=== PATIENT | male | born 1960 | race Caucasian/White ===

== ENCOUNTER 2019-04-26 10:55 | Inpatient (IN) | payer OTHER ==
[2019-04-26 11:38] VITALS: BMI 24.3
--- NOTE | 2019-04-26 12:30 | HP ---
COWS - Scale Resting Pulse: 1= [place] 81-100 Sweatin= Chills/Flushing Restless Observation: 1= Difficult to Sit Still Pupil Size: 0= Normal to Room Light Bone or Joint Aches: 1= Mild Discomfort Runny Nose/ Eye Tearin= None GI Upset > 30mins: 0= None Tremor Observation: 0= None Yawning Observation: 0= None Anxiety or Irritability: 0= None Goose Flesh Skin: 0=Smooth Skin COWS Score: 4 CIWA Score Nausea/Vomitin-No Nausea/No Vomiting Muscle Tremors: 1-None Visible, but [place] Anxiety: 0-No Anxiety, at Ease Agitation: 0-Normal Activity Paroxysmal Sweats: 1-Minimal Palms Moist Orientation: 0-Oriented Tacttile Disturbances: 0-None Auditory Disturbances: 0-None Visual Disturbances: 0-None Headache: 0-None Present CIWA-Ar Total Score: 2 - Admission Criteria OASAS Guidelines: Admission for Medically Managed Detox: Requires at least one of the followin. CIWA greater than 12 2. Seizures within the past 24 hours 3. Delirium tremens within the past 24 hours 4. Hallucinations within the past 24 hours 5. Acute intervention needed for co occurring medical disorder 6. Acute intervention needed for co occurring psychiatric disorder 7. Severe withdrawal that cannot be handled at a lower level of care (continued vomiting, continued diarrhea, abnormal vital signs) requiring intravenous medication and/or fluids 8. Admitting History and Physical - Admission Limitations to Obtaining History: No Limitations - Past Medical History Hepatobiliary: Yes: Hepatitis C (s/p treatment) Infectious Disease: Yes: HIV Musculoskeletal: Yes: Other (R sided 2x broken ribs) - Past Surgical History Past Surgical History: Yes: Cholecystectomy, Tonsillectomy - Smoking History Smoking history: Former smoker Have you smoked in the past 12 months: No - Alcohol/Substance Use Hx Alcohol Use: Yes Number of Drinks Daily: 12 History of Substance Use: reports: Cocaine, Heroin Date of Last Use: 04/26/19 - Social History Usual Living Arrangement: Yes: Alone Admission [facility] Allergies/Adverse Reactions: Allergies Allergy/AdvReac Type Severity Reaction Status Date / Time Unclassified Drug Allergy Unknown Verified 04/26/19 11:28 History of Present Illness: 59 y.o. M PM HIV (follows up at [facility], noncompliant with medications) , has 2 current broken ribs on R side (went to [facility] 2 days ago but left AMA) , Hep C (s/p treatment 1.5yrs ago). Has completed detox in the past. EtOH: 2- 6 packs daily. Last drink 3 beers this morning. Has never passed out from drinking. Never had a seizure d/t not drinking. Heroin: 2-3 bags daily along with methadone. Last used yesterday. Started heroin at age 16. Route: IV. Crack cocaine: Uses $30-$40/ day. Last used yesterday. Methadone: prescribed ([facility]) PSH: tonsilletomy, cholecystectomy Social hx: in [place] in an apartment. 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 I have strongly urged patient to follow up once rehab is completed with his HIV clinic to restart these medications as soon as possible. Patient is aware of risks of not taking HIV medications. Exam Limitations: No Limitations - Ebola screening Have you traveled outside of the country in the last 21 days: No Have you had contact with anyone from an Ebola affected area: No Do you have a fever: No - Review of Systems Constitutional: Diaphoresis EENT: reports: No Symptoms Reported Respiratory: reports: No Symptoms reported Cardiac: reports: No Symptoms Reported GI: reports: No Symptoms Reported : reports: No Symptoms Reported Musculoskeletal: reports: Other (R sided midaxillary pain T4-T7 d/t broken ribs) Integumentary: reports: No Symptoms Reported Neuro: reports: No Symptoms reported Endocrine: reports: No Symptoms Reported Hematology: reports: No Symptoms Reported Psychiatric: reports: No Sypmtoms Reported, Orientated x3 Patient History - Patient Medical History Hx Anemia: No Hx Asthma: No Hx Chronic Obstructive Pulmonary Disease (COPD): No Hx Cancer: No Hx Cardiac Disorders: No Hx Congestive Heart Failure: No Hx Hypertension: No Hx Hypercholesterolemia: No Hx Pacemaker: No HX Cerebrovascular Accident: No Hx Seizures: No Hx Dementia: No Hx Diabetes: No Hx Gastrointestinal Disorders: No Hx Liver Disease: No Hx Genitourinary Disorders: No Hx Sexually Transmitted Disorders: No Hx Renal Disease (ESRD): No Hx Thyroid Disease: No Hx Human Immunodeficiency Virus (HIV): Yes Hx Hepatitis C: Yes Hx Depression: No Hx Suicide Attempt: No Hx Schizophrenia: No - Patient Surgical History Past Surgical History: No Hx Cholecystectomy: Yes - Smoking Cessation Smoking history: Former smoker Have you smoked in the past 12 months: No Hx Chewing Tobacco Use: No Initiated information on smoking cessation: Yes 'Breaking Loose' booklet given: 04/26/19 - Substance & Tx. History Hx Alcohol Use: Yes Hx Substance Use: Yes Substance Use Type: Alcohol, Cocaine, Heroin, Prescribed (methadone) - Substances abused Alcohol Substance route: Oral Frequency: Daily Amount used: 12 beers Age of first use: 16 Date of last use: 04/26/19 Cocaine Substance route: Smoking Frequency: Daily Amount used: $50-70 Age of first use: 19 Date of last use: 04/25/19 Crack Substance route: Smoking Frequency: Daily Amount used: Varies Age of first use: 16 Date of last use: 04/26/19 Heroin Substance route: Injection Frequency: Daily Amount used: $20 Age of first use: 16 Date of last use: 04/25/19 Admission Physical Exam [facility] - Vital Signs Vital Signs: Vital Signs - 24 hr 04/26/19 11:27 Temperature 97.1 F L Pulse Rate 84 Respiratory 18 Rate Blood Pressure 116/61 - Physical General Appearance: Yes: Within Normal Limits HEENTM: Yes: Within Normal Limits, Hearing grossly Normal, Normocephalic Respiratory: Yes: Lungs Clear, Normal Breath Sounds Neck: Yes: Within Normal Limits Cardiology: Yes: Regular Rhythm, Regular Rate, S1, S2 Abdominal: Yes: Within Normal Limits, Non Tender, Soft Back: Yes: Within Normal Limits Musculoskeletal: Yes: Muscle Pain (R sided rib pain) Extremities: Yes: Normal Range of Motion 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, Fully Oriented, Alert Integumentary: Yes: Track Hernandez (RUE) Lymphatic: Yes: Within Normal Limits - Diagnostic (1) Heroin abuse Current Visit: Yes Status: Chronic (2) Alcohol abuse Current Visit: Yes Status: Chronic Cleared for Admission [facility] - Detox or Rehab [facility] Level of Care: Medically Supervised Breathalyzer - Breathalyzer Breathalyzer: 0.043 Urine Drug Screen - Test Device Lot number: [id number] Expiration date: 12/24/20 - Control Is test valid?: Yes - Results Drug screen NEGATIVE: No Urine drug screen results: COLEEN-Cocaine, MOP-Opiates, MTD-Methadone Inpatient Rehab Admission - Rehab Decision to Admit Inpatient rehab admission?: Yes - Initial Determination Are CD services needed?: Yes Free of communicable disease: Yes Not in need of hospitalization: Yes - Rehab Admission Criteria Previous failed treatment: No Poor recovery environment: No Comorbidities: No Lacks judgement: Yes Patient is meeting Inpatient Rehab admission criteria:: Yes
--- NOTE | 2019-04-26 12:49 | PN ---
Teaching Attending Note Name of Resident: Carolina Gonzalez ATTENDING PHYSICIAN STATEMENT I saw and evaluated the patient. I reviewed the resident's note and discussed the case with the resident. I agree with the resident's findings and plan as documented. SUBJECTIVE:pt reports etoh use 4 beers today , 1-2 x 6-pk/day , denies withdrawal symptoms, denies blackouts/ tremors , seizures . PMH HIV (follows up at [facility], noncompliant with medication> 3 mo reports diversion ) reports R rib frx (went to [facility] 2 days ago but left AMA), Hep C (s/p treatment 1.5yrs ago). Heroin: 2-3 bags dailyIV in UE , on MMTP Started heroin at age 16 Crack cocaine: Uses $30-$40/ day. Last used yesterday. PSH: tonsilletomy, cholecystectomy OBJECTIVE: wnwd IVDU track pizano R UE, Vital Signs - 24 hr 04/26/19 11:27 Temperature 97.1 F L Pulse Rate 84 Respiratory 18 Rate Blood Pressure 116/61 ASSESSMENT AND PLAN: Opioid dependence on agonist therapy Alcohol use disorder / Cocaine dependence - rehab
[2019-04-26] MEDS ORDERED: guaiFENesin 200 MG/10 ML 10 ML UNIT-DOSE CUPS PO PRN (13:17)
[2019-04-26] MEDS ORDERED: MAGNESIUM CITRATE 300 ML BOTTLE PO PRN (13:17)
[2019-04-26] MEDS ORDERED: ACETAMINOPHEN 325 MG TABLET (FP) PO PRN (13:17)
[2019-04-26] MEDS ORDERED: MAG HYDROX/AL HYDROX/SIMETH 30 ML UNIT-DOSE CUP PO PRN (13:17)
[2019-04-26] MEDS ORDERED: IBUPROFEN 400 MG TABLET (FP) PO PRN (13:17)
[2019-04-26] MEDS ORDERED: MENTHOL/PHENOL 1 EACH UD MM PRN (13:17)
[2019-04-26] MEDS ORDERED: P-EPHED 60MG/TRIPROLIDI 2.5MG TABLET PO PRN (13:17)
[2019-04-26] MEDS ORDERED: MAGNESIUM HYDROX 2400MG/30ML ORAL SUSPENSION 30 ML CUP PO PRN (13:17)
[2019-04-26] MEDS ORDERED: LOPERAMIDE HCL 2 MG CAPSULE PO PRN (13:17)
[2019-04-26] MEDS: MELATONIN 5 MG TABLETS PO PRN (21:32)
[2019-04-26] MEDS: THIAMINE HCL 100 MG TABLET (FP) PO SCH (21:32)
[2019-04-27] MEDS ORDERED: METHADONE HCL 10 MG TABLET ONE (05:04)
[2019-04-27] MEDS ORDERED: METHADONE HCL 40 MG DISPERSABLE TABLET ONE (05:04)
[2019-04-27] MEDS ORDERED: METHADONE HCL 10 MG TABLET PO SCH (06:00)
[2019-04-27] MEDS: METHADONE 80 MG, METHADONE 20 MG PO SCH (06:16)
[2019-04-27] MEDS: PRENATAL VITAMINS W/ FOLIC ACID TABLET (FP) PO SCH (10:03)
[2019-04-27] MEDS ORDERED: FLU VACCINE QUAD 60 MCG/0.5 ML (MDV 19-20) IM ONE (12:00)
[2019-04-27 12:30] LABS: HEMATOCRIT 42.5 % (35.4-49); MCH 27.9 pg (25.7-33.7); MEAN CELL VOLUME 84.5 fl (80-96); PLATELET COUNT 283 K/MM3 (134-434); RBC 5.03 M/mm3 (4.00-5.60); RDW 14.2 % (11.9-15.9); WHITE BLOOD COUNT 5.3 K/mm3 (4.0-10.0)
[2019-04-27 12:46] LABS: ALBUMIN 3.5 g/dl (3.4-5.0); BILIRUBIN,TOTAL 0.3 mg/dL (0.2-1); BLOOD UREA NITROGEN 5.6 mg/dL (7-18); CALCIUM 8.8 mg/dL (8.5-10.1); CREATININE 0.8 mg/dL (0.55-1.3); POTASSIUM 4.3 mmol/L (3.5-5.1); TOT PROT 7.4 g/dl (6.4-8.2)
[2019-04-27 14:28] LABS: PH,URINE 5.5 (5.0-8.0); URINE APPEARANCE Clear; URINE BILIRUBIN Negative (NEGATIVE); URINE COLOR Yellow; URINE GLUCOSE (UA) Negative (NEGATIVE); URINE KETONE Negative (NEGATIVE); URINE LEUK ESTERASE Negative (NEGATIVE); URINE NITRITE Negative (NEGATIVE); URINE PROTEIN Negative (NEGATIVE); URINE UROBILINOGEN 0.2 mg/dL (0.2-1.0)
[2019-04-27] MEDS: THIAMINE HCL 100 MG TABLET (FP) PO SCH (21:14)
[2019-04-27] MEDS: MELATONIN 5 MG TABLETS PO PRN (21:14)
[2019-04-28] MEDS ORDERED: METHADONE HCL 40 MG DISPERSABLE TABLET ONE (05:30)
[2019-04-28] MEDS ORDERED: METHADONE HCL 10 MG TABLET ONE (05:30)
[2019-04-28] MEDS: METHADONE 80 MG, METHADONE 20 MG PO SCH (07:20)
--- NOTE | 2019-04-28 10:11 | PN ---
[facility] Progress Note Note: Vital Signs Temperature 98.3 F 04/28/19 06:38 Pulse Rate 72 04/28/19 06:38 Respiratory Rate 16 04/28/19 06:38 Blood Pressure 123/72 04/28/19 06:38 O2 Sat by Pulse Oximetry (%) Laboratory Last Values WBC 5.3 K/mm3 (4.0-10.0) 04/27/19 08:25 RBC 5.03 M/mm3 (4.00-5.60) 04/27/19 08:25 Hgb 14.0 GM/dL (11.7-16.9) 04/27/19 08:25 Hct 42.5 % (35.4-49) 04/27/19 08:25 MCV 84.5 fl (80-96) 04/27/19 08:25 MCH 27.9 pg (25.7-33.7) 04/27/19 08:25 MCHC 33.0 g/dl (32.0-35.9) 04/27/19 08:25 RDW 14.2 % (11.9-15.9) D 04/27/19 08:25 Plt Count 283 K/MM3 (134-434) D 04/27/19 08:25 MPV 7.0 fl (7.5-11.1) L D 04/27/19 08:25 Sodium 139 mmol/L (136-145) 04/27/19 08:25 Potassium 4.3 mmol/L (3.5-5.1) 04/27/19 08:25 Chloride 103 mmol/L (98-107) 04/27/19 08:25 Carbon Dioxide 32 mmol/L (21-32) 04/27/19 08:25 Anion Gap 4 MMOL/L (8-16) L 04/27/19 08:25 BUN 5.6 mg/dL (7-18) L 04/27/19 08:25 Creatinine 0.8 mg/dL (0.55-1.3) 04/27/19 08:25 Est GFR (CKD-EPI)AfAm 112.53 04/27/19 08:25 Est GFR (CKD-EPI)NonAf 97.10 04/27/19 08:25 Random Glucose 92 mg/dL (74-106) 04/27/19 08:25 Calcium 8.8 mg/dL (8.5-10.1) 04/27/19 08:25 Total Bilirubin 0.3 mg/dL (0.2-1) 04/27/19 08:25 AST 16 U/L (15-37) 04/27/19 08:25 ALT 23 U/L (13-61) 04/27/19 08:25 Alkaline Phosphatase 104 U/L (45-117) 04/27/19 08:25 Total Protein 7.4 g/dl (6.4-8.2) 04/27/19 08:25 Albumin 3.5 g/dl (3.4-5.0) 04/27/19 08:25 Urine Color Yellow 04/27/19 08:50 Urine Appearance Clear 04/27/19 08:50 Urine pH 5.5 (5.0-8.0) 04/27/19 08:50 Ur Specific [place] 1.015 (1.010-1.035) 04/27/19 08:50 Urine Protein Negative (NEGATIVE) 04/27/19 08:50 Urine Glucose (UA) Negative (NEGATIVE) 04/27/19 08:50 Urine Ketones Negative (NEGATIVE) 04/27/19 08:50 Urine Blood Trace-intact (NEGATIVE) 04/27/19 08:50 Urine Nitrite Negative (NEGATIVE) 04/27/19 08:50 Urine Bilirubin Negative (NEGATIVE) 04/27/19 08:50 Urine Urobilinogen 0.2 mg/dL (0.2-1.0) 04/27/19 08:50 Ur Leukocyte Esterase Negative (NEGATIVE) 04/27/19 08:50 labs reviewed continue to monitor
[2019-04-28] MEDS: PRENATAL VITAMINS W/ FOLIC ACID TABLET (FP) PO SCH (10:28)
[2019-04-28] MEDS: MELATONIN 5 MG TABLETS PO PRN (21:24)
[2019-04-28] MEDS: THIAMINE HCL 100 MG TABLET (FP) PO SCH (21:24)
[2019-04-29] MEDS ORDERED: METHADONE HCL 10 MG TABLET ONE (05:57)
[2019-04-29] MEDS: METHADONE 80 MG, METHADONE 20 MG PO SCH (05:58)
[2019-04-29] MEDS ORDERED: METHADONE HCL 40 MG DISPERSABLE TABLET ONE (05:58)
[2019-04-29] MEDS: PRENATAL VITAMINS W/ FOLIC ACID TABLET (FP) PO SCH (09:29)
[2019-04-29] MEDS: THIAMINE HCL 100 MG TABLET (FP) PO SCH (21:25)
[2019-04-29] MEDS: MELATONIN 5 MG TABLETS PO PRN (21:25)
[2019-04-30] MEDS ORDERED: METHADONE HCL 40 MG DISPERSABLE TABLET ONE (05:32)
[2019-04-30] MEDS ORDERED: METHADONE HCL 10 MG TABLET ONE (05:32)
[2019-04-30] MEDS: METHADONE 80 MG, METHADONE 20 MG PO SCH (06:16)
[2019-04-30] MEDS: PRENATAL VITAMINS W/ FOLIC ACID TABLET (FP) PO SCH (12:27)
--- NOTE | 2019-04-30 14:17 | CONSULT ---
[facility] Psychiatric Consult - Data Date of interview: 04/30/19 Identifying data: Mr Rene is a 59 years old male, unemployed receving SSI, domiciled admitted self-referred on 04/26/19 for inpatient rehab admission for alcohol, opioid and cocaine Substance Abuse History: Reports history of alcohol, heroin and cocaine use. Refer to addiction counselor's summary for further information Medical History: Significant for HIV, history of treatment for hepatitis C, fracture right ribs and surgeries(cholecystectomy, tonsillectomy) Psychiatric History: Patient was approached in the small dining room. He told commercial lines underwriter:" you are not the one I want to speak to. I want to speak with the one with silver hair like me"
[2019-04-30] MEDS: THIAMINE HCL 100 MG TABLET (FP) PO SCH (22:11)
[2019-04-30] MEDS: SALICYLIC ACID 1 APPLIC BOTTLE TP SCH (22:11)
[2019-05-01] MEDS ORDERED: METHADONE HCL 10 MG TABLET ONE (05:06)
[2019-05-01] MEDS ORDERED: METHADONE HCL 40 MG DISPERSABLE TABLET ONE (05:07)
[2019-05-01] MEDS: METHADONE 80 MG, METHADONE 20 MG PO SCH (06:02)
[2019-05-01] MEDS: PRENATAL VITAMINS W/ FOLIC ACID TABLET (FP) PO SCH (10:05)
[2019-05-01] MEDS: SALICYLIC ACID 1 APPLIC BOTTLE TP SCH ×2 (10:05→21:13)
[2019-05-01] MEDS: MELATONIN 5 MG TABLETS PO PRN (21:13)
[2019-05-01] MEDS: THIAMINE HCL 100 MG TABLET (FP) PO SCH (21:13)
[2019-05-02] MEDS ORDERED: METHADONE HCL 10 MG TABLET ONE (05:13)
[2019-05-02] MEDS ORDERED: METHADONE HCL 40 MG DISPERSABLE TABLET ONE (05:13)
[2019-05-02] MEDS: METHADONE 80 MG, METHADONE 20 MG PO SCH (05:58)
[2019-05-02] MEDS ORDERED: PT OWN MED DRAWER 7, Y5N ONE ×2 (08:44→18:53)
[2019-05-02] MEDS: SALICYLIC ACID 1 APPLIC BOTTLE TP SCH ×2 (09:54→21:34)
[2019-05-02] MEDS: PRENATAL VITAMINS W/ FOLIC ACID TABLET (FP) PO SCH (09:54)
[2019-05-02] MEDS: THIAMINE HCL 100 MG TABLET (FP) PO SCH (21:35)
[2019-05-02] MEDS: MELATONIN 5 MG TABLETS PO PRN (21:35)
[2019-05-03] MEDS ORDERED: METHADONE HCL 10 MG TABLET PO SCH (06:00)
[2019-05-03] MEDS ORDERED: METHADONE HCL 10 MG TABLET ONE (06:01)
[2019-05-03] MEDS ORDERED: METHADONE HCL 40 MG DISPERSABLE TABLET ONE (06:01)
[2019-05-03] MEDS: METHADONE 80 MG, METHADONE 20 MG PO SCH (06:30)
[2019-05-03] MEDS: SALICYLIC ACID 1 APPLIC BOTTLE TP SCH ×2 (10:33→21:13)
[2019-05-03] MEDS: PRENATAL VITAMINS W/ FOLIC ACID TABLET (FP) PO SCH (10:33)
[2019-05-03] MEDS: THIAMINE HCL 100 MG TABLET (FP) PO SCH (21:13)
[2019-05-03] MEDS: MELATONIN 5 MG TABLETS PO PRN (21:13)
[2019-05-04] MEDS ORDERED: METHADONE HCL 10 MG TABLET ONE (06:00)
[2019-05-04] MEDS ORDERED: METHADONE HCL 40 MG DISPERSABLE TABLET ONE (06:00)
[2019-05-04] MEDS: METHADONE 80 MG, METHADONE 20 MG PO SCH (06:20)
[2019-05-04] MEDS: PRENATAL VITAMINS W/ FOLIC ACID TABLET (FP) PO SCH (09:37)
[2019-05-04] MEDS: SALICYLIC ACID 1 APPLIC BOTTLE TP SCH ×2 (09:37→21:41)
[2019-05-04] MEDS: THIAMINE HCL 100 MG TABLET (FP) PO SCH (21:38)
[2019-05-04] MEDS ORDERED: PT OWN MED DRAWER 7, Y5N ONE (21:40)
[2019-05-05] MEDS ORDERED: METHADONE HCL 40 MG DISPERSABLE TABLET ONE (05:24)
[2019-05-05] MEDS ORDERED: METHADONE HCL 10 MG TABLET ONE (05:24)
[2019-05-05] MEDS: METHADONE 80 MG, METHADONE 20 MG PO SCH (06:06)
[2019-05-05] MEDS: PRENATAL VITAMINS W/ FOLIC ACID TABLET (FP) PO SCH (10:59)
[2019-05-05] MEDS: SALICYLIC ACID 1 APPLIC BOTTLE TP SCH ×2 (10:59→22:31)
[2019-05-05] MEDS: THIAMINE HCL 100 MG TABLET (FP) PO SCH (22:32)
[2019-05-06] MEDS ORDERED: METHADONE HCL 40 MG DISPERSABLE TABLET ONE (05:01)
[2019-05-06] MEDS ORDERED: METHADONE HCL 10 MG TABLET ONE (05:01)
[2019-05-06] MEDS: METHADONE 80 MG, METHADONE 20 MG PO SCH (05:50)
[2019-05-06] MEDS: SALICYLIC ACID 1 APPLIC BOTTLE TP SCH ×2 (09:47→21:57)
[2019-05-06] MEDS: PRENATAL VITAMINS W/ FOLIC ACID TABLET (FP) PO SCH (09:47)
[2019-05-06] MEDS: THIAMINE HCL 100 MG TABLET (FP) PO SCH (21:58)
[2019-05-06] MEDS: MELATONIN 5 MG TABLETS PO PRN (21:58)
[2019-05-07] MEDS ORDERED: METHADONE HCL 40 MG DISPERSABLE TABLET ONE (06:27)
[2019-05-07] MEDS ORDERED: METHADONE HCL 10 MG TABLET ONE (06:27)
[2019-05-07] MEDS: METHADONE 80 MG, METHADONE 20 MG PO SCH (06:30)
[2019-05-07] MEDS ORDERED: PT OWN MED DRAWER 7, Y5N ONE (08:40)
[2019-05-07] MEDS: PRENATAL VITAMINS W/ FOLIC ACID TABLET (FP) PO SCH (10:39)
[2019-05-07] MEDS: SALICYLIC ACID 1 APPLIC BOTTLE TP SCH ×2 (10:39→21:08)
[2019-05-07] MEDS: THIAMINE HCL 100 MG TABLET (FP) PO SCH (21:08)
[2019-05-07] MEDS: MELATONIN 5 MG TABLETS PO PRN (21:08)
[2019-05-08] MEDS ORDERED: METHADONE HCL 40 MG DISPERSABLE TABLET ONE (06:04)
[2019-05-08] MEDS ORDERED: METHADONE HCL 10 MG TABLET ONE (06:04)
[2019-05-08] MEDS: METHADONE 80 MG, METHADONE 20 MG PO SCH (06:05)
[2019-05-08] MEDS: PRENATAL VITAMINS W/ FOLIC ACID TABLET (FP) PO SCH (10:16)
[2019-05-08] MEDS: SALICYLIC ACID 1 APPLIC BOTTLE TP SCH ×2 (10:17→21:44)
[2019-05-08] MEDS: THIAMINE HCL 100 MG TABLET (FP) PO SCH (21:44)
[2019-05-08] MEDS: MELATONIN 5 MG TABLETS PO PRN (21:44)
[2019-05-09] MEDS ORDERED: METHADONE HCL 10 MG TABLET ONE (05:05)
[2019-05-09] MEDS ORDERED: METHADONE HCL 40 MG DISPERSABLE TABLET ONE (05:05)
[2019-05-09] MEDS: METHADONE 80 MG, METHADONE 20 MG PO SCH (05:50)
[2019-05-09] MEDS: PRENATAL VITAMINS W/ FOLIC ACID TABLET (FP) PO SCH (09:56)
[2019-05-09] MEDS: SALICYLIC ACID 1 APPLIC BOTTLE TP SCH ×2 (09:57→21:52)
--- NOTE | 2019-05-09 14:01 | PN ---
S Progress Note Note: Requesting to start his HIV medications. Patient has not been on medications for > 3 months. States that he has had several periods without taking his medication and re-starting the regimen again. Explained to patient that we cannot do a resistance test to determine the correct regimen because he has been on and off his HIV medications several times and may have developed resistance. Advised patient to return to his HIV specialist upon discharge to re -start medications.
[2019-05-09] MEDS: THIAMINE HCL 100 MG TABLET (FP) PO SCH (21:52)
[2019-05-10] MEDS ORDERED: METHADONE HCL 40 MG DISPERSABLE TABLET ONE (05:15)
[2019-05-10] MEDS ORDERED: METHADONE HCL 10 MG TABLET ONE (05:15)
[2019-05-10] MEDS: METHADONE 80 MG, METHADONE 20 MG PO SCH (05:56)
[2019-05-10] MEDS ORDERED: PT OWN MED DRAWER 7, Y5N ONE (08:28)
[2019-05-10] MEDS: SALICYLIC ACID 1 APPLIC BOTTLE TP SCH ×2 (10:10→21:59)
[2019-05-10] MEDS: PRENATAL VITAMINS W/ FOLIC ACID TABLET (FP) PO SCH (10:10)
[2019-05-10] MEDS: MELATONIN 5 MG TABLETS PO PRN (21:58)
[2019-05-10] MEDS: THIAMINE HCL 100 MG TABLET (FP) PO SCH (21:58)
[2019-05-11] MEDS ORDERED: METHADONE HCL 10 MG TABLET ONE (05:23)
[2019-05-11] MEDS ORDERED: METHADONE HCL 40 MG DISPERSABLE TABLET ONE (05:23)
[2019-05-11] MEDS: METHADONE 80 MG, METHADONE 20 MG PO SCH (06:09)
[2019-05-11] MEDS: SALICYLIC ACID 1 APPLIC BOTTLE TP SCH ×2 (10:32→21:53)
[2019-05-11] MEDS: PRENATAL VITAMINS W/ FOLIC ACID TABLET (FP) PO SCH (10:32)
[2019-05-11] MEDS ORDERED: PT OWN MED DRAWER 7, Y5N ONE (19:37)
[2019-05-11] MEDS: MELATONIN 5 MG TABLETS PO PRN (21:52)
[2019-05-11] MEDS: THIAMINE HCL 100 MG TABLET (FP) PO SCH (21:52)
[2019-05-12] MEDS ORDERED: METHADONE HCL 10 MG TABLET ONE (05:58)
[2019-05-12] MEDS ORDERED: METHADONE HCL 40 MG DISPERSABLE TABLET ONE (05:58)
[2019-05-12] MEDS: METHADONE 80 MG, METHADONE 20 MG PO SCH (06:18)
[2019-05-12] MEDS ORDERED: PT OWN MED DRAWER 7, Y5N ONE (08:55)
[2019-05-12] MEDS: PRENATAL VITAMINS W/ FOLIC ACID TABLET (FP) PO SCH (09:17)
[2019-05-12] MEDS: SALICYLIC ACID 1 APPLIC BOTTLE TP SCH ×2 (10:19→21:13)
[2019-05-12] MEDS: MELATONIN 5 MG TABLETS PO PRN (21:13)
[2019-05-12] MEDS: THIAMINE HCL 100 MG TABLET (FP) PO SCH (21:13)
[2019-05-13] MEDS ORDERED: METHADONE HCL 10 MG TABLET ONE (05:57)
[2019-05-13] MEDS ORDERED: METHADONE HCL 40 MG DISPERSABLE TABLET ONE (05:58)
[2019-05-13] MEDS: METHADONE 80 MG, METHADONE 20 MG PO SCH (06:29)
[2019-05-13] MEDS: PRENATAL VITAMINS W/ FOLIC ACID TABLET (FP) PO SCH (10:55)
[2019-05-13] MEDS: SALICYLIC ACID 1 APPLIC BOTTLE TP SCH ×2 (10:55→21:13)
[2019-05-13] MEDS: MELATONIN 5 MG TABLETS PO PRN (21:13)
[2019-05-13] MEDS: THIAMINE HCL 100 MG TABLET (FP) PO SCH (21:13)
[2019-05-14] MEDS ORDERED: METHADONE HCL 40 MG DISPERSABLE TABLET ONE (05:25)
[2019-05-14] MEDS ORDERED: METHADONE HCL 10 MG TABLET ONE (05:25)
[2019-05-14] MEDS: METHADONE 80 MG, METHADONE 20 MG PO SCH (05:41)
[2019-05-14] MEDS: PRENATAL VITAMINS W/ FOLIC ACID TABLET (FP) PO SCH (09:58)
[2019-05-14] MEDS: SALICYLIC ACID 1 APPLIC BOTTLE TP SCH ×2 (09:59→22:07)
[2019-05-14] MEDS: MELATONIN 5 MG TABLETS PO PRN (22:07)
[2019-05-14] MEDS: THIAMINE HCL 100 MG TABLET (FP) PO SCH (22:07)
[2019-05-15] MEDS ORDERED: METHADONE HCL 40 MG DISPERSABLE TABLET ONE (05:28)
[2019-05-15] MEDS ORDERED: METHADONE HCL 10 MG TABLET ONE (05:28)
[2019-05-15] MEDS: METHADONE 80 MG, METHADONE 20 MG PO SCH (06:10)
[2019-05-15] MEDS: SALICYLIC ACID 1 APPLIC BOTTLE TP SCH ×3 (10:30→21:43)
[2019-05-15] MEDS: PRENATAL VITAMINS W/ FOLIC ACID TABLET (FP) PO SCH (10:30)
[2019-05-15] MEDS: THIAMINE HCL 100 MG TABLET (FP) PO SCH (21:43)
[2019-05-15] MEDS: MELATONIN 5 MG TABLETS PO PRN (21:43)
[2019-05-15] MEDS ORDERED: PT OWN MED DRAWER 7, Y5N ONE (21:44)
[2019-05-16] MEDS ORDERED: METHADONE HCL 10 MG TABLET ONE (05:30)
[2019-05-16] MEDS ORDERED: METHADONE HCL 40 MG DISPERSABLE TABLET ONE (05:30)
[2019-05-16] MEDS: METHADONE 80 MG, METHADONE 20 MG PO SCH (06:30)
[2019-05-16] MEDS: PRENATAL VITAMINS W/ FOLIC ACID TABLET (FP) PO SCH (10:02)
[2019-05-16] MEDS: SALICYLIC ACID 1 APPLIC BOTTLE TP SCH ×2 (10:03→21:33)
[2019-05-16] MEDS ORDERED: PT OWN MED DRAWER 7, Y5N ONE ×2 (10:04→20:47)
[2019-05-16] MEDS: THIAMINE HCL 100 MG TABLET (FP) PO SCH (21:34)
[2019-05-16] MEDS: MELATONIN 5 MG TABLETS PO PRN (21:35)
[2019-05-17] MEDS ORDERED: METHADONE HCL 40 MG DISPERSABLE TABLET ONE (05:52)
[2019-05-17] MEDS ORDERED: METHADONE HCL 10 MG TABLET ONE (05:52)
[2019-05-17] MEDS: METHADONE 80 MG, METHADONE 20 MG PO SCH (06:19)
[2019-05-17 07:02] VITALS: BP 128/78; PULSE 89; TEMP 99.1
--- NOTE | 2019-05-17 08:56 | DS ---
[facility] Rehab Discharge Summary - [facility] Rehab Discharge Summary Admission Date: 04/26/19 Discharge Date: 05/17/19 - History Pertinent Past History: 59 y.o. M PMH HIV (follows up at [facility], noncompliant with medications) , has 2 current broken ribs on R side (went to [facility] 2 days ago but left AMA) , Hep C (s/p treatment 1.5yrs ago). Has completed detox in the past. EtOH: 2- 6 packs daily.Has never passed out from drinking. Never had a seizure d /t not drinking. Heroin: 2-3 bags daily along with methadone. Started heroin at age 16. Route: IV. Crack cocaine: Uses $30-$40/ day. Methadone: prescribed ([facility]) PSH: tonsilletomy, cholecystectomy Social hx: in [place] in an apartment. Not currently working, on SSI All: none Meds: complera (noncompliant hasn't taken in 3 months) Patient is noncompliant with HIV medications as he sells them to pay for his habits. Patient is aware of risks of not taking HIV medications. - Discharge Physical Exam Vital Signs: Vital Signs Temperature 99.1 F 05/17/19 07:02 Pulse Rate 89 05/17/19 07:02 Respiratory Rate 18 05/17/19 07:02 Blood Pressure 128/78 05/17/19 07:02 O2 Sat by Pulse Oximetry (%) Pertinent Admission Physical Exam Findings: - Physical General Appearance: No apparent distress HEENTM: Normocephalic Respiratory: Lungs Clear, Normal Breath Sounds Neck: supple, Cardiology: S1, S2 Abdominal: +BS. 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. Medically stable for discharge.) Hospital Course: Patient was adherent to his medication regimen and treatment plan. He was seen by psychiatric service and had 1:1 meetings with his counselor. He had no acute or urgent medical problems while in rehab. He did request to start his HIV medications. However, he has not taken them for > 3 months and needs further assessment by his HIV specialist to determine the correct regimen at this time. This was explained to the patient and he accepted this instruction. - Medication Discharge Medications: Ambulatory Orders Emtricitab/Rilpivirine/Tenofov [Complera -] 1 each PO DAILY 04/26/19 - Medication-Assisted Treatment (MAT) Medication-Assisted Treatment (MAT): No - Discharge Instructions Diet, activity, other medical instructions: Diet: as tolerated Activity: as tolerated Other medical instructions: Please follow up with aftercare referral. Please make an appointment with your HIV specialist for evaluation and determination of the correct ART regimen. - Diagnosis (1) Alcohol abuse Current Visit: Yes Status: Chronic (2) Heroin abuse Current Visit: Yes Status: Chronic - Follow-up Referral Minutes to complete discharge: 20 - AMA Did Patient Leave Against Medical Advice: No Additional Comments: Prescriptions were not transmitted to the patient's pharmacy. His only home medication was his ART regimen, which he has not taken for > 3 months. He requires re-assessment by his HIV specialist and was informed of the same.
[2019-05-17] MEDS ORDERED: PT OWN MED DRAWER 7, Y5N ONE (08:57)
[2019-05-17] MEDS: PRENATAL VITAMINS W/ FOLIC ACID TABLET (FP) PO SCH (09:07)
[2019-05-17] MEDS: SALICYLIC ACID 1 APPLIC BOTTLE TP SCH (09:07)
== END 2019-05-17 09:15 | disposition home or self-care (01) | DRG 772 ==
LOC: YASAS 10:55 → Y3W 15:04
PROVIDERS: ADMIT Neuromusculoskeletal Medicine & OMM; ATTEND Neuromusculoskeletal Medicine & OMM
PROC: HZ42ZZZ Group Counseling for Substance Abuse Treatment, Cognitive-Behavioral (ICD-10-PCS; principal; 2019-04-26)
DX: F10.20 Alcohol dependence, uncomplicated (principal); F11.20 Opioid dependence, uncomplicated; F14.20 Cocaine dependence, uncomplicated; Z21 Asymptomatic human immunodeficiency virus [HIV] infection status; B18.2 Chronic viral hepatitis C; Z90.49 Acquired absence of other specified parts of digestive tract; Z91.14 Patient's other noncompliance with medication regimen
CPT/HCPCS: 36415; 80053; 81003; 85027; 86593; G0008; Q2036